=== PATIENT | male | born 1985 ===

== ENCOUNTER 2017-10-18 14:08 | Emergency (ER) | payer BC ==
--- NOTE | 2017-10-18 14:34 | UC ---
Knee Pain HPI - HPI Summary HPI Summary: 32 year old male presents with complains of right knee pain/swelling after falling on a rock. - History of Current Complaint Stated Complaint: RT KNEE INJ Time Seen by Provider: 10/18/17 14:33 Hx Obtained From: Patient Onset/Duration: Sudden Onset Severity Initially: Moderate Severity Currently: Moderate Pain Scale Used: 0-10 Numeric - 5 - Allergies/Home Medications Allergies/Adverse Reactions: Allergies Allergy/AdvReac Type Severity Reaction Status Date / Time Ibuprofen AdvReac Nausea Verified 10/18/17 14:43 hay,dust Allergy Eyes Uncoded 10/18/17 14:42 Itchy/Swollen/Red/Watery PMH/Surg Hx/FS Hx/Imm Hx Previously Healthy: Yes - Surgical History Surgical History: None - Family History Known Family History: Positive: None - Social History Substance Use Type: None Review of Systems Constitutional: Negative Skin: Negative Eyes: Negative ENT: Negative Respiratory: Negative Cardiovascular: Negative Gastrointestinal: Negative Genitourinary: Negative Motor: Negative Neurovascular: Negative Musculoskeletal: Other: - right knee pain/swelling Neurological: Negative Psychological: Negative All Other Systems Reviewed And Are Negative: Yes Physical Exam Triage Information Reviewed: Yes Vital Signs Reviewed: Yes Eye Exam: Normal ENT Exam: Normal Dental Exam: Normal Neck exam: Normal Neck: Positive: 1 Respiratory Exam: Normal Cardiovascular Exam: Normal Abdominal Exam: Normal Musculoskeletal: Positive: Other: - right knee swelling/pain Neurological Exam: Normal Psychological Exam: Normal Skin Exam: Normal Knee Pain Course/Dx - Differential Dx/Diagnosis Provider Diagnoses: right knee swelling/pain Discharge - Discharge Plan Condition: Stable Disposition: HOME Prescriptions: Naproxen [Naprosyn 500 mg] 500 mg PO BID #30 tab Patient Education Materials: Knee Pain (ED) Forms: *Work Release Referrals: Nikolai Buckner MD [Medical Doctor] - No Primary Care Phys,NOPCP [Primary Care Provider] -
[2017-10-18 14:42] VITALS: BP 123/65
--- NOTE | 2017-10-18 15:08 | RAD ---
INDICATION: Right knee pain after a fall 2 days earlier COMPARISON: None TECHNIQUE: 4 view radiograph of the right knee. FINDINGS: The visualized bones are well-corticated and properly aligned. The joint spaces are properly maintained. There is no radiographic evidence of joint effusion. There is no acute fracture, dislocation or other focal bony abnormality. IMPRESSION: Normal knee radiograph as described above. If the patient's symptoms persist, follow-up imaging is recommended.
== END 2017-10-18 15:30 | disposition home or self-care (01) ==
LOC: UCCORT 14:08
DX: M25.561 Pain in right knee (principal); M25.461 Effusion, right knee; Z88.6 Allergy status to analgesic agent
CPT/HCPCS: 99213; G0463